=== PATIENT | female | born 2000 | race Caucasian/White ===

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

== ENCOUNTER 2023-06-13 20:44 | Emergency (ER) | payer OTHER, BC ==
[~2023-06-13] VITALS: Ht 170.2 cm; Wt 65.9 kg
[~2023-06-13 20:44] MED LIST changes: +ZOFRAN ODT4 MG PO
[2023-06-13 20:51] VITALS: BP 127/85; TEMP 98.4
[2023-06-13] MEDS ORDERED: NORCO 325 MG-51 TAB PO (22:47)
[2023-06-13 22:56] VITALS: PULSE 86
== END 2023-06-13 22:56 | disposition home or self-care (01) ==
LOC: COL.ER 20:44
DX: S92.355A Nondisplaced fracture of fifth metatarsal bone, left foot, initial encounter for closed fracture (principal); X50.1XXA Overexertion from prolonged static or awkward postures, initial encounter; Y93.67 Activity, basketball
CPT/HCPCS: L4386